=== PATIENT | male | born 1935 | race Caucasian/White ===

== ENCOUNTER 2018-12-20 20:16 | Inpatient (IN) | payer MEDICARE, BC ==
[~2018-12-20] VITALS: Ht 180.3 cm; Wt 56.7 kg
--- NOTE | 2018-12-20 20:20 | NUR ---
TO BED 4 BIB EMS C/O PER FAMILY PT IS "MORE ALTERED THAN NORMAL" ACCORDING TO EMS REPORT. PT AAOX1, NO ACUTE DISTRESS NOTED, RESP EVEN AND UNLABORED. PLACE PT ON CARDIAC MONITORING, CONTINUOUS POX. PENDING ER MD KLIEN. PT DENIES PAIN OR DISCOMFORT AT THIS TIME.
--- NOTE | 2018-12-20 20:28 | NUR ---
ER MD AT BEDSIDE TO EVAL PT WITH ORDERS RECEIVED. WILL CARRY OUT ORDERS.
--- NOTE | 2018-12-20 20:50 | NUR ---
PT FAMILY MEMBERS AT BEDSIDE.
[2018-12-20 20:52] LABS: BASOPHILS # (AUTO) 0.1 /CMM (0.0-0.2); EOSINOPHILS % (AUTO) 1.1 % (0.0-6.0); HEMATOCRIT 42 % (39-51); HEMOGLOBIN 13.8 g/dL (13.5-17.5); LYMPHOCYTES # (AUTO) 1.5 /CMM (0.8-4.8); LYMPHOCYTES % (AUTO) 21.6 % (20.0-44.0); MEAN CORPUSCULAR HGB CONC 33 g/dl (31.0-36.0); MEAN CORPUSCULAR VOLUME 90 fL (80-96); MONOCYTES # (AUTO) 0.5 /CMM (0.1-1.30); MONOCYTES % (AUTO) 7.1 % (2.0-12.0); NEUTROPHILS # (AUTO) 4.9 /CMM (1.8-8.9); NEUTROPHILS % (AUTO) 69.2 % (43.0-81.0); PLATELET COUNT (AUTO) 168 /CMM (150-450); RED BLOOD CELL COUNT(AUTO) 4.66 MIL/uL (4.5-6.0)
[2018-12-20 21:00] LABS: CALCIUM, SERUM 9.5 mg/dL (8.5-10.1); CARBON DIOXIDE 26 mmol/L (21-32); CHLORIDE 104 mmol/L (98-107); CREATININE 1.1 mg/dL (0.6-1.3); GLUCOSE 111 mg/dL (74-106); POTASSIUM 4.4 mmol/L (3.5-5.1); SODIUM SERUM 137 mmol/L (136-145); UREA NITROGEN, BLOOD 29 mg/dL (7-18)
[2018-12-20] MEDS ORDERED: IV NS 0.9% 500 ML BAG IV ONE (21:00)
[2018-12-20 21:06] LABS: ALANINE AMINOTRANSFERASE 31 U/L (12-78); ALBUMIN 3.3 g/dL (3.4-5.0); ALKALINE PHOSPHATASE 91 U/L (46-116); ASPARTATE AMINOTRANSFERASE 25 U/L (15-37); BILIRUBIN,DIRECT 0.2 mg/dL (0.0-0.2); BILIRUBIN,TOTAL 0.7 mg/dL (0.2-1.0); TOTAL PROTEIN, SERUM 7.1 g/dL (6.4-8.2)
--- NOTE | 2018-12-20 21:39 | NUR ---
PT BACK FROM RADIOLOGY. PENDING CT HEAD.
[2018-12-20] MEDS ORDERED: ASPIRIN 81 MG TAB.CHEW PO ONE (22:30)
[2018-12-20] MEDS ORDERED: FUROSEMIDE 40 MG/4 ML VIAL IV ONE (22:30)
[2018-12-20] MEDS ORDERED: NITROGLYCERIN PACKET 1 GM PACKET TOP ONE (22:30)
[2018-12-20] MEDS ORDERED: DILTIAZEM HCL 50 MG IV IV ONE (22:30)
--- NOTE | 2018-12-20 22:30 | NUR ---
ER MD AT BEDSIDE TALKING TO PT AND DAUGHTER REGARDINGLAB RESULT AND HOSPITAL ADMISSION. PT AND PT DAUGHTER AGREED.
[2018-12-20] MEDS ORDERED: FUROSEMIDE 40 MG/4 ML VIAL ONE (22:32)
[2018-12-20] MEDS ORDERED: ASPIRIN 81 MG TAB.CHEW ONE (22:33)
[2018-12-20] MEDS ORDERED: NITROGLYCERIN PACKET 1 GM PACKET ONE (22:33)
[2018-12-20] MEDS ORDERED: DILTIAZEM HCL 50 MG IV ONE (22:34)
--- NOTE | 2018-12-20 22:39 | NUR ---
CALLED NURSING SUP FOR BED UPDATE
--- NOTE | 2018-12-20 23:15 | NUR ---
ADMIT ROOM 111-1 [facility] DX [facility] ACCEPTED [facility]
--- NOTE | 2018-12-20 23:15 | NUR ---
REPORT CALLED TO [facility] STONE. WILL TRANSPORT PT VIA ACLS PROTOTOCL.
--- NOTE | 2018-12-20 23:45 | NUR ---
PT TRANSPORTED TO [facility] VIAL ACLS PROTOCOL.
--- NOTE | 2018-12-20 23:50 | NUR ---
tasha rn note admitted a 83 y/o male alert oriented x1-2with confussion , on tele monitor on ST -119, with admitting dx of chf , v/s stable afebrile , HOB WITH elevated at all times for aspiration precaution .on nc at 2 liters WITH O2 SAT OF 97 % No sob no distress noted admission routine care rendered , all due meds given as ordered , at bedside updated with pts current condition . all needs attended to call light within reach ,kept pts clean dry and comfortable .pts for srict I&O, will continue to monitor pts.
[2018-12-21] VITALS (7 sets, daily range): BP systolic 103–143; BP diastolic 57–89
[2018-12-21] MEDS ORDERED: Z GUARD REMEDY 2 OZ OINT TP PRN
[2018-12-21] MEDS ORDERED: ACETAMINOPHEN 325 MG TABLET PO PRN
[2018-12-21] MEDS ORDERED: MAG HYDROX/AL HYDROX/SIMETH 30 ML UDC PO PRN
[2018-12-21] MEDS ORDERED: MAGNESIUM HYDROXIDE 30 ML UDC PO PRN
[2018-12-21] MEDS ORDERED: HYDROCODONE/APAP 5/325MG 1 EACH TABLET PO PRN
[2018-12-21] MEDS ORDERED: ONDANSETRON HCL/PF 4 MG/2 ML VIAL IVP PRN
--- NOTE | 2018-12-21 00:24 | NUR ---
RT NOTE PATIENT FAMILY REFUSED ABG AT THIS TIME. NO DISTRESS NOTED. Addendum: 12/21/18 at 1121 by SILVIA EMANUEL RT RN AWARE.
[2018-12-21] MEDS ORDERED: DILT-32 PO (00:47)
[2018-12-21] MEDS ORDERED: ASPI-1169 PO (00:47)
[2018-12-21] MEDS ORDERED: MELA3TAB PO (00:47)
[2018-12-21] MEDS ORDERED: FURO-144 PO (00:47)
[2018-12-21] MEDS ORDERED: TAMS-12 PO (00:47)
[2018-12-21] MEDS ORDERED: CARV3.12 PO (00:47)
[2018-12-21] MEDS ORDERED: ENOXAPARIN SODIUM 40 MG/0.4 ML DISP.SYRIN SQ ONE (01:00)
[2018-12-21] MEDS ORDERED: Medication Not On Formulary EA (Melatonin 3 MG) PO SCH (01:30)
--- NOTE | 2018-12-21 04:38 | NUR ---
RT NOTE PATIENT REFUSED EKG AT THIS TIME. YUMI STONE NOTIFIED AND AWARE.
--- NOTE | 2018-12-21 05:00 | NUR ---
JOSE ALBERTO RN NOTES PTS NON COMPLIANT TO CARE , REFUSE AM CARE , EKG ,AM LABS ,TURNING REPOSITIONING , AT BEDSIDE , ALSO PTS FOR COLLECTION OF UA C/S REFUSE I & O cath.
--- NOTE | 2018-12-21 06:49 | NUR ---
JOSE ALBERTO RN NOTES PTS REMAIN IN BED AT BEDSIDE , PTS COMFORTABLE IN BED. REMAINS ON NC AT 2LITERS SATING 97 % NO SOB NO DISTRESS NOTED . WILL ENDORSE TO RN DAY SHIFT FOR CONTINUITY OF CARE.
--- NOTE | 2018-12-21 07:35 | NUR ---
RN JOSE ALBERTO OPENING NOTES RECEIVED BEDSIDE REPORT PATIENT UNDRESSED AND RESTLESS IN BED. A/O 2-3. NO SIGNS OR SYMPTOMS OF RESPIRATORY DISTRESS OR ACUTE PAIN NOTED. AT BEDSIDE REFUSES TO HAVE CARE OR LABS , XRAY OR SPECIMEN COLLECTIONS DONE. ASKING FOR A CUPOLA PATCHER HELPER TO SIT AT BEDSIDE SO SHE CAN GO HOME AND SLEEP. PATIENT SINUS TACH ON MONITOR. LFA #18 GAUGE NO FLUIDS RUNNING AT THIS TIME. UNABLE TO REVIEW LABS D/T REFUSAL .SAFETY PRECAUTIONS IN PLACE BED IN LOW POSITION CALL LIGHT WITH REACH. WILL CONT TO MONITOR
--- NOTE | 2018-12-21 07:59 | NUR ---
RN JOSE ALBERTO NOTES ANSWERED PATIENT CALL LIGHT . UPSET STATING HER IS NOT BEING CARED FOR PROPERLY AND WANTS TO ONLY SPEAK TO DOCTOR. PATIENT IS RESTING COMFORTABLE IN BED ASKED IF HE WAS OK AND HE STATED YES. THEN RAISED VOICE AND SAID HE IS NOT! EXPLAINED THE IMPORTANCE OF LABS AND XRAY TO PROPERLY CARE FOR PATIENT. SHE SAID SHE WANTS TO TAKE HIM TO HIS DOCTOR GELA. I OFFERED AN AMA FORM AND SHE REFUSED SAID SHE WILL WAIT FOR HOSPITALIST. TOLD HER I WILL TRY AND CONTACT MD BUT MAY NOT SEE THEM TILL LATER IN DAY. SHE SAID FINE AND WANTS NOTHING TO DO STAFF WE ARE ONLY DISTURBING THE PATIENT
--- NOTE | 2018-12-21 08:21 | NUR ---
RN JOSE ALBERTO NOTES HAND OFF REPORT GIVEN TO TANYA
--- NOTE | 2018-12-21 08:21 | NUR ---
RN NOTES RECEIVED REPORTS FROM BRAULIO. PATIENT IN BED, AWAKE, NOT ON ANY FORM OF DISTRESS, ON ROOM AIR. NO SOB NOTED. ABLE TO TALK BUT WORDS UNCLEAR, AT BEDSIDE. WITH CONCERNS ABOUT LAB WORK SCHEDULED FOR TODAY. HAVE VERBALIZED THAT SHE WANTED TO TALK TO MD FIRST BEFORE LETTING LABS TO BE DRAWN/DONE. SHE WANTED TO HEAR THE SIGNIFICANCE OF SUCH FROM THE DR BEFORE PERMITTING SINCE " THERE WERE LABS DONE AT THE FACILITY WHERE HE CAME FROM AND THE DOCTOR SAID THEY WERE [facility]"
[2018-12-21] MEDS: TAMSULOSIN 0.4 MG CAP.SR.24H PO SCH ×2 (09:00→09:42)
[2018-12-21] MEDS: ASPIRIN 81 MG TAB.CHEW PO SCH (09:39)
[2018-12-21] MEDS: FUROSEMIDE 40 MG TABLET PO SCH (09:40)
[2018-12-21] MEDS: DILTIAZEM HCL CD 120 MG PO SCH (09:40)
[2018-12-21] MEDS: CARVEDILOL 3.125 MG TABLET PO SCH ×2 (09:41→18:01)
--- NOTE | 2018-12-21 10:30 | NUR ---
RN NOTES AT BEDSIDE REFUSED MEDICATION ADMINISTRATION ( HE DOESN'T NEED IT).
[2018-12-21 14:13] LABS: BASOPHILS # (AUTO) 0.1 /CMM (0.0-0.2); BASOPHILS % (AUTO) 1.1 % (0.0-2.0); EOSINOPHILS % (AUTO) 0.8 % (0.0-6.0); HEMATOCRIT 41 % (39-51); LYMPHOCYTES # (AUTO) 1.2 /CMM (0.8-4.8); MEAN CORPUSCULAR HGB CONC 35 g/dl (31.0-36.0); MEAN CORPUSCULAR VOLUME 89 fL (80-96); MONOCYTES # (AUTO) 0.4 /CMM (0.1-1.30); MONOCYTES % (AUTO) 7.4 % (2.0-12.0); NEUTROPHILS % (AUTO) 69.7 % (43.0-81.0); PLATELET COUNT (AUTO) 178 /CMM (150-450); RED BLOOD CELL COUNT(AUTO) 4.55 MIL/uL (4.5-6.0); WHITE BLOOD COUNT (AUTO) 5.7 K/uL (4.3-11.0)
[2018-12-21 14:22] LABS: CALCIUM, SERUM 9.4 mg/dL (8.5-10.1); CARBON DIOXIDE 25 mmol/L (21-32); CHLORIDE 104 mmol/L (98-107); CREATININE 1.1 mg/dL (0.6-1.3); GLUCOSE 161 mg/dL (74-106); POTASSIUM 4.1 mmol/L (3.5-5.1); SODIUM SERUM 140 mmol/L (136-145); UREA NITROGEN, BLOOD 28 mg/dL (7-18)
[2018-12-21 14:26] LABS: MAGNESIUM 2.1 mg/dL (1.8-2.4); PHOSPHORUS 3.7 mg/dL (2.5-4.9)
[2018-12-21 14:34] LABS: CHOLESTEROL 196 mg/dL (<200); HDL CHOLESTEROL 24 mg/dL (40-60); LDL 166 mg/dL (0-99); THYROID STIMULATING HORMONE 1.046 uIU/mL (0.358-3.74); TRIGLYCERIDES 135 mg/dL (30-150)
--- NOTE | 2018-12-21 15:00 | NUR ---
RN NOTES 'S CONCERN REGARDING PHYSICAL THERAPY RELAYED TO DR HOPKINS, PER LATER WILL PUT ORDER FOR AM, JUST WANT TO MAKE SURE THAT PATIENT IS SEEN BY WHEELMAN BEFORE PHYSICAL THERAPY. WENT TO BEDSIDE TO INFORM BUT PATIENT TOGETHER WITH INSISTED HAVING THE PATIENT SIT ON A CHAIR. AT BED SIDE, PATIENT TRANSFERRED TO THE CHAIR WITH YUMI MAGALLANES. AT BEDSIDE
--- NOTE | 2018-12-21 15:30 | NUR ---
RN NOTES INFORMED DR. HOPKINS ABOUT TROPONIN AT 0.145 FROM 0. 123 LAST NIGHT. NNO ORDER OBTAINED AT THIS TIME
--- NOTE | 2018-12-21 17:05 | NUR ---
Met with patient and spouse at bedside. Very brief encounter as both are praying for passover. States patient lives locally with spouse in a single level home. Patient has limited ambulation, requires assistive device. He owns a walker and wheelchair,no homehealth reported. provides assistance with adl's. is requesting home safety eval and home PT when discharge. Addendum: 12/21/18 at 2305 by UNIQUE POP RN Amended: Links added.
--- NOTE | 2018-12-21 19:33 | NUR ---
RN NOTES ENDORSED PATIENT FOR CONTINUITY OF CARE. NOT ON ANY FORM OF DISTRESS. NO ACUTE CHANGE WITHIN THE SHIFT. ALL NURSING NEEDS ATTENDED AND MET. SAFETY MEASURES KEPT IN PLACE AT ALL TIMES. CALL LIGHT WITHIN REACH
[2018-12-21] MEDS: ENOXAPARIN SODIUM 40 MG/0.4 ML DISP.SYRIN SQ SCH (21:01)
[2018-12-21] MEDS ORDERED: ASPIRIN 81 MG TAB.CHEW PO SCH (22:00)
[2018-12-22] VITALS: BP 121/82
[2018-12-22 04:00] VITALS: BP 122/78
--- NOTE | 2018-12-22 06:48 | NUR ---
PT REMAINS IN NO ACUTE DISTRESS IN BED. PT DID NOT HAVE ANY SIGNIFICANT CHANGE IN CONDITION DURING SHIFT. ALL NEEDS MET, ALL ORDERS CARRIED OUT. WILL ENDORSE CARE TO AM RN FOR CONTINUITY OF CARE.
--- NOTE | 2018-12-22 07:00 | NUR ---
RN NOTES RECEIVED PT ON BED. A/Ox1-2, ON RA , RESPIRATION EVEN AND UNLABORED, NO SOB NOTED, SUPPORTIVE AT THE BEDSIDE, ON TELE SR HR IN 80'S , L FA IV SITE G 18 CLEAN, DRY AND INTACT, SR UP x3, CALL LIGHT WITHIN EASY REACH , BED LOCKED AND IN LOWEST POSITION, CONTINUE TO MONITOR .
[2018-12-22 08:00] VITALS: BP 128/80
[2018-12-22] MEDS: ASPIRIN 81 MG TAB.CHEW PO SCH (08:35)
[2018-12-22] MEDS: FUROSEMIDE 40 MG TABLET PO SCH (08:36)
[2018-12-22] MEDS: DILTIAZEM HCL CD 120 MG PO SCH (08:42)
[2018-12-22] MEDS: CARVEDILOL 3.125 MG TABLET PO SCH ×2 (08:43→16:50)
[2018-12-22] MEDS: TAMSULOSIN 0.4 MG CAP.SR.24H PO SCH (08:51)
[2018-12-22 10:06] LABS: BASOPHILS % (AUTO) 0.8 % (0.0-2.0); EOSINOPHILS % (AUTO) 1.3 % (0.0-6.0); HEMATOCRIT 40 % (39-51); HEMOGLOBIN 13.4 g/dL (13.5-17.5); LYMPHOCYTES # (AUTO) 1.3 /CMM (0.8-4.8); LYMPHOCYTES % (AUTO) 23.5 % (20.0-44.0); MEAN CORPUSCULAR HGB CONC 33 g/dl (31.0-36.0); MEAN CORPUSCULAR VOLUME 89 fL (80-96); MONOCYTES # (AUTO) 0.5 /CMM (0.1-1.30); NEUTROPHILS # (AUTO) 3.6 /CMM (1.8-8.9); NEUTROPHILS % (AUTO) 65.4 % (43.0-81.0); PLATELET COUNT (AUTO) 186 /CMM (150-450); RED BLOOD CELL COUNT(AUTO) 4.51 MIL/uL (4.5-6.0); WHITE BLOOD COUNT (AUTO) 5.5 K/uL (4.3-11.0)
[2018-12-22 10:30] LABS: CALCIUM, SERUM 9.3 mg/dL (8.5-10.1); CARBON DIOXIDE 26 mmol/L (21-32); CHLORIDE 104 mmol/L (98-107); GLUCOSE 115 mg/dL (74-106); PHOSPHORUS 2.6 mg/dL (2.5-4.9); POTASSIUM 3.9 mmol/L (3.5-5.1); SODIUM SERUM 139 mmol/L (136-145); UREA NITROGEN, BLOOD 30 mg/dL (7-18)
[2018-12-22 11:59] LABS: APPEARANCE,URINE CLEAR (CLEAR); BILIRUBIN,URINE 1+ (NEGATIVE); BLOOD, URINE NEGATIVE Ery/uL (NEGATIVE); COLOR,URINE DARK YELLO (YELLOW); KETONES,URINE NEGATIVE (NEGATIVE); LEUKOCYTE ESTERASE ,URINE NEGATIVE (NEGATIVE); NITRITE, URINE NEGATIVE (NEGATIVE); PROTEIN,URINE NEGATIVE (NEGATIVE); UGLUCOSE NEGATIVE (NEGATIVE)
--- NOTE | 2018-12-22 12:38 | NUR ---
RN NOTES PT AND PT'S REFUSED TO HAVE H/L INPLACE, , STATED THAT H/L IS BOTHERING HIM . IV SITE D/MARIANA PER PT REQUEST .
--- NOTE | 2018-12-22 13:00 | NUR ---
RN NOTES PT'S IS VERY ANXIOUS AND WORRIED , ASKING FOR HELP FROM WHOEVER PASSING BY THE PT'S ROOM. PT'S WANTS TO GET THE PT OUT OF BED TO CHAIR AND EXPECTING STAFF MEMBERS TO LIFT THE PT UP AND PLACE HIM ON A CHAIR , PT IS HIGH RISK FOR FALL, RISK AND BENEFIT OF GETTING PT OUT OF BED TO CHAIR WITHOUT PHYSICAL THERAPIST EXPLAINED TO PT AND HIS . PT'S IS NOT COMPLIANT WITH INSTRUCTIONS, CHARGE NURSE GIO NOTIFED .
--- NOTE | 2018-12-22 13:30 | NUR ---
RN NOTES UPON ARRIVAL TO THE ROOM , PT IS SITTING ON THE CHAIR AND STATED THAT SHE PUT HIM ON A CHAIR, ADVISED PT'S CALL FOR ASSISTANCE TO GET PT OUT OF BED .
[2018-12-22 16:00] VITALS: BP 124/86
--- NOTE | 2018-12-22 16:00 | NUR ---
RN NOTES CASE MANAGEMENT NOTIFED REGARDING DISCHARGE PLAN PER FAMILY REQUEST .
--- NOTE | 2018-12-22 18:00 | NUR ---
RN NOTES PT PLACED BACK ON BED WITH HELP OF STAFF MEMBERS WITH MAXIMUM ASSIST , VSS STABLE, SUPPORTIVE FAMILY AT THE BEDSIDE, NO SIGNIFICANT CHANGES NOTED ON THIS SHIFT, WILL ENDORSE TO HUMAN RESOURCE OFFICER NURSE FOR CONTINUITY OF CARE .
[2018-12-22 20:00] VITALS: BP 102/66
--- NOTE | 2018-12-22 20:00 | NUR ---
RN NOTES RECEIVED PT REPORT FROM AM RN KELECHI. PT IS IN BED. A/Ox1-2, ON O2 VIA NC , RESPIRATION EVEN AND UNLABORED, NO SOB NOTED, AT THE BEDSIDE , I HAVE BEEN REMOVED BY AM SHIFT RN BY PT'S REQUEST, NO IV LINE AT THIS MOMENT BECAUSE PT'S IS REFUSING NEW IV LINE START.ALL SAFETY MEASURES ARE IMPLEMENTED, BED IN LOW, LOCKED PASITION, SR UP x2, CALL LIGHT WITHIN EASY REACH , WILL CONTINUE TO MONITOR PATIENT CLOSELY . Addendum: 12/23/18 at 0119 by VICTORIANO ACEVES RN PATIENT IS REFUSING TO BE CLEANED UNTIL MORNING AFTER BREAKFAST.
--- NOTE | 2018-12-22 20:50 | NUR ---
RN NOTES PATIENT'S IS COMPLAINING OF OTHER PATIENT'S SON BEING LOUD AND NOT LETTING HER TO SLEEP , SHE WAS POINTING OUT THE VISITING HOURS AND SAID THAT IT'S AFTER VISITING HOURS. VERY NICELY AND QUIETLY I TOLD HER THE OTHER PATIENT'S SON IS GOING TO [place] IN 5 MINUTES AND HE NEEDS TO TALK TO ME NOW. ME AND OTHER PATIENT'S SON LEFT THE ROOM AND TALK IN THE HALLWAY ABOUT HIS FATHER'S HEALTH CONDITION. AFTER THAT PT'S APPROACHED TO MACHINE ASSEMBLER FOR PULLER OVER ELSA AND COMPLAINT ABOUT ME BY ASKING CHANGE THE NURSE. NURSE OPERATIONS SUPERVISOR CARMEN WAS IN THE UNIT AND REFUSED TO MAKE THE CHANGE DUE TO INAPPROPRIATE REQUEST. WILL CONTINUE PATIENT CARE AND MONITOR PATIENT CLOSELY.
[2018-12-22] MEDS: ENOXAPARIN SODIUM 40 MG/0.4 ML DISP.SYRIN SQ SCH (23:00)
[2018-12-23 04:00] VITALS: BP 124/76
--- NOTE | 2018-12-23 07:47 | NUR ---
RN NOTES PATIENT IS IN STABLE CONDITION, V/S STABLE,WNL, SUPPORTIVE FAMILY AT THE BEDSIDE, NO SIGNIFICANT CHANGES NOTED ON MY SHIFT, WILL ENDORSE TO MORNING SHIFT NURSE FOR CONTINUITY OF CARE .
[2018-12-23 08:00] VITALS: BP 132/86
--- NOTE | 2018-12-23 08:00 | NUR ---
RN NOTES MS RECIEVED PT WITH NO IV LINE. CHARGE NURSE IS AWARE. REFUSES AND IS AT BEDSIDE. A&O x2 NO EDEMA, USES DIAPER. SKIN IS INTACT. CARDIAC DIET. BNP AND TROP IS TRENDING UP. URINE CULTURE PENDING ALONG W PHOS, MG, BMP AND cbc. WILL CONTINUE TO MONITER
[2018-12-23] MEDS: DILTIAZEM HCL CD 120 MG PO SCH (08:48)
[2018-12-23] MEDS: FUROSEMIDE 40 MG TABLET PO SCH (08:48)
[2018-12-23] MEDS: ASPIRIN 81 MG TAB.CHEW PO SCH (08:48)
[2018-12-23] MEDS: TAMSULOSIN 0.4 MG CAP.SR.24H PO SCH (08:49)
[2018-12-23] MEDS: CARVEDILOL 3.125 MG TABLET PO SCH (08:49)
--- NOTE | 2018-12-23 08:50 | NUR ---
MS1/RN ROUNDS - DR. GRIMES PT SEEN & EXAMINED BY DR. GRIMES, NO NEW ORDERS RECEIVED AT THIS TIME. MONITORING CONTINUED.
--- NOTE | 2018-12-23 12:31 | NUR ---
MS1/RN REPORT TO SNF REPORT GIVEN TO NURSE MAHER FOR PT TO BE DISCHARGE LATER TODAY.
--- NOTE | 2018-12-23 13:49 | NUR ---
MS1/RN PHYSICAL THERAPIST PT SEEN BY PHYSICAL THERAPIST, PT AMBULATED WITH WALKER WITH THERAPIST BY HIS SIDE, ABLE TO WALK 60 FEET WITH MINIMUM ASSIST.
[2018-12-23 16:00] VITALS: BP 108/70
--- NOTE | 2018-12-23 17:20 | NUR ---
MS1/IMMIGRATION COORDINATOR TO SNF REPORT GIVEN TO TRANSPORT PERSONNEL. DISCHARGE DOCUMENTS GIVEN TO TRANSPORT PERSONNEL, REMOVED ID BAND, RETURNED PERSONAL BELONGINGS, INVENTORY LOG WAS CO-SIGNED WITH ANOTHER NURSE D/T OBSERVANCE OF [place] IDAY PT UNABLE TO SIGN. PT LEFT VIA GURNEY ACCOMPANIED BY PT'S AND (2) OTHER FAMILY MEMBERS IN STABLE CONDITION.
== END 2018-12-23 17:21 | DRG 280 ==
LOC: ER 20:20 → TELE-TD 23:35 → MEDSG1 12-22 09:58
PROVIDERS: ADMIT Nurse Practitioner Acute Care; ATTEND Student in an Organized Health Care Education/Training Program
DX: I11.0 Hypertensive heart disease with heart failure (principal); I21.A1 Myocardial infarction type 2; G93.41 Metabolic encephalopathy; I48.92 Unspecified atrial flutter; E46 Unspecified protein-calorie malnutrition; I50.33 Acute on chronic diastolic (congestive) heart failure; I48.91 Unspecified atrial fibrillation; N40.0 Benign prostatic hyperplasia without lower urinary tract symptoms; M41.9 Scoliosis, unspecified
CPT/HCPCS: 36415; 70450-TC; 71045-TC; 80048-TC; 80061-TC; 80076-TC; 81000-TC; 83605-TC; 83735-TC; 83880; 84100-TC; 84443-TC; 84484-TC; 85025-TC; 85730-TC; 87040-TC; 87086-TC; 93307-TC; G0378; J1650; J1940; J3490; J7030